=== PATIENT | female | born 1990 | race Caucasian/White ===

== ENCOUNTER 2024-12-30 20:44 | Emergency (ER) | payer OTHER ==
[~2024-12-30] VITALS: Ht 157.5 cm; Wt 99.8 kg
[2024-12-30 22:08] LABS: Source, Urine Voided
[2024-12-30] MEDS ORDERED: Dexamethasone Sod Phos 10 MG/ML 1ML VIAL IM ONE (22:10)
[2024-12-30 22:15] LABS: Appearance, Urine Hazy (Clear); Bilirubin, Urine Neg (Neg); Blood, Urine Neg (Neg); Color, Urine Yellow (P-Yellow); Glucose Qualitative, Urine Neg (Neg); Ketones, Urine Neg (Neg); Leukocyte Esterase, Urine Neg (Neg); Nitrite, Urine Neg (Neg); Protein, Urine 2+ (Neg); Urobilinogen, Urine 2+ (Normal)
[2024-12-30 22:22] LABS: Amorphous Heavy (0-Heavy); Bacteria Few /hpf; Red Blood Cells, Urine 0-2 /hpf (0-2); Squamous Epithelial Cells Few /hpf (Few); White Blood Cells, Urine 0-2 /hpf (0-5)
[2024-12-30] MEDS ORDERED: PRED20 PO ×2 (23:04→23:09)
== END 2024-12-30 23:10 | disposition home or self-care (01) ==
LOC: ER 20:44
PROVIDERS: Student in an Organized Health Care Education/Training Program
DX: T49.4X1A Poisoning by keratolytics, keratoplastics, and other hair treatment drugs and preparations, accidental (unintentional), initial encounter (principal); R60.0 Localized edema
CPT/HCPCS: 81001; 82947; 96372; 99283-25; J1100

== ENCOUNTER 2025-01-04 00:39 | Emergency (ER) | payer OTHER ==
[~2025-01-04] VITALS: Ht 157.5 cm; Wt 95.2 kg
[~2025-01-04 00:39] MED LIST: PRED20 PO
[2025-01-04] MEDS ORDERED: Dexamethasone Sod Phos 10 MG/ML 1ML VIAL PO ONE (02:00)
== END 2025-01-04 02:23 | disposition home or self-care (01) ==
LOC: ER 00:39
DX: L65.9 Nonscarring hair loss, unspecified (principal); T20.65XA Corrosion of second degree of scalp [any part], initial encounter; T49.4X1A Poisoning by keratolytics, keratoplastics, and other hair treatment drugs and preparations, accidental (unintentional), initial encounter; Z79.52 Long term (current) use of systemic steroids
CPT/HCPCS: 99284; J1100